=== PATIENT | female | born 1950 | race Caucasian/White ===

== ENCOUNTER → 2022-02-04 | Outpatient (CLI) | payer MEDICARE | LOC: KOH-I 15:12 | DX: M79.672 Pain in left foot (principal); M79.671 Pain in right foot | CPT/HCPCS: 73630 ==

== ENCOUNTER → 2022-02-21 | Outpatient (CLI) | payer MEDICARE | LOC: EMI 02-10 10:15 | DX: M77.41 Metatarsalgia, right foot (principal) | CPT/HCPCS: 73718 ==

== ENCOUNTER → 2022-05-21 | Outpatient (CLI) | payer MEDICARE ==
[~2022-05-21] MED LIST: BAYER CHEWABLE81 MG PO; CELEBREX 200MG200 MG PO; EUTHYROX50 MCG PO; LIPITOR TAB 1010 MG PO; Q-SORB CO Q-10100 MG PO; [UNRECOGNIZED DRUG - OTHER] PO
[2022-05-21 09:58] LABS: HEMOGLOBIN 12.6 gm/dl (12.3-15.3); RED BLOOD COUNT 3.85 M/UL (4.00-5.10); WHITE BLOOD COUNT 4.7 K/UL (4.5-11.0)
[2022-05-21 10:34] LABS: BUN/CREATININE RATIO 33 (0-10)
== END ==
LOC: OPSV2 09:00
PROVIDERS: Podiatrist Foot & Ankle Surgery
DX: Z01.812 Encounter for preprocedural laboratory examination (principal); M77.41 Metatarsalgia, right foot; M89.8X7 Other specified disorders of bone, ankle and foot
CPT/HCPCS: 80048; 85027

== ENCOUNTER → 2022-06-04 | Day surgery (SDC) | payer MEDICARE ==
[~2022-06-04] VITALS: Ht 162.6 cm; Wt 68.9 kg
== END | disposition home or self-care (01) ==
LOC: OR 05-28 16:30
DX: M77.41 Metatarsalgia, right foot (principal); E65 Localized adiposity; M21.621 Bunionette of right foot; M20.11 Hallux valgus (acquired), right foot; Z88.5 Allergy status to narcotic agent
CPT/HCPCS: 73630; 76000; 93005; C1713; J0690; J1100; J1170; J1885; J2001; J2370; J2405; J2704; J2795; J3010; J3370; Q4133

== ENCOUNTER → 2022-06-23 | Outpatient (CLI) | payer MEDICARE | LOC: KOH-I 16:17 | DX: M79.671 Pain in right foot (principal); Z98.890 Other specified postprocedural states | CPT/HCPCS: 73630 ==

== ENCOUNTER → 2022-07-07 | Outpatient (CLI) | payer MEDICARE | LOC: KOH-I 16:37 | DX: M79.671 Pain in right foot (principal); Z96.7 Presence of other bone and tendon implants; Z98.890 Other specified postprocedural states | CPT/HCPCS: 73630 ==

== ENCOUNTER → 2022-07-21 | Outpatient (CLI) | payer MEDICARE | LOC: KOH-I 15:49 | DX: M79.671 Pain in right foot (principal); Z96.7 Presence of other bone and tendon implants | CPT/HCPCS: 73630 ==